=== PATIENT | male | born 1955 | race Caucasian/White ===

== ENCOUNTER 2022-01-02 09:20 | Emergency (ER) | payer MEDICARE, OTHER ==
[~2022-01-02] VITALS: Ht 182.9 cm; Wt 77.1 kg
[~2022-01-02 09:20] MED LIST: ACET500 PO; Bisac-Evac10 MG PR; DOCU100 PO; FOLI1 PO; IMODIUM A-D2 M1 PO; Micro-K10 MEQ; NICO2 PO; ONDA4ODT MM; OXYC5 PO; THIA100 PO; TRAM50
[2022-01-02] MEDS ORDERED: Percocet 5-3251 EACH PO (11:35)
== END 2022-01-02 12:07 | disposition home or self-care (01) ==
LOC: ER 09:20
DX: S80.00XA Contusion of unspecified knee, initial encounter (principal); W22.8XXA Striking against or struck by other objects, initial encounter; Z79.899 Other long term (current) drug therapy; Z87.891 Personal history of nicotine dependence
CPT/HCPCS: 73562-LT; A9270

== ENCOUNTER 2022-01-11 10:00 | Inpatient (IN) | payer MEDICARE, OTHER ==
[~2022-01-11] VITALS: Ht 170.2 cm; Wt 57.9 kg
[~2022-01-11 10:00] MED LIST changes: +B-1100 M1 PO; +BISA10S PR; -Bisac-Evac10 MG PR; +Percocet 5-3251 EACH PO
[2022-01-11 11:05] LABS: BASOPHILS ABSOLUTE AUTO 0.18 K/mm3 (0.00-0.23); BASOPHILS PERCENT AUTO 0 % (0-2); EOSINOPHILS ABSOLUTE AUTO 0.23 K/mm3 (0.00-0.68); EOSINOPHILS PERCENT AUTO 1 % (0-6); Hematocrit 39.2 % (37.0-53.0); Hemoglobin 12.4 g/dL (13.5-17.5); IMMATURE GRAN ABSOLUTE AUTO 0.84 K/mm3 (0.00-0.10); IMMATURE GRAN PERCENT AUTO 2 % (0-1); LYMPHOCYTES ABSOLUTE AUTO 1.13 K/mm3 (0.84-5.20); LYMPHOCYTES PERCENT AUTO 2 % (21-46); MONOCYTES ABSOLUTE AUTO 2.06 K/mm3 (0.16-1.47); MONOCYTES PERCENT AUTO 4 % (4-13); Mean Corpuscular HGB Conc 31.6 g/dL (31.5-36.5); Mean Corpuscular Volume 82 fL (80-100); NEUTROPHILS ABSOLUTE AUTO 43.89 K/mm3 (1.96-9.15); NEUTROPHILS PERCENT AUTO 91 % (41-73); Platelet Count 383 K/mm3 (150-400); RDW Coefficient Variation 15.6 % (11.7-14.2); RDW Standard Deviation 46.3 fL (35.1-46.3); Red Blood Cell Count 4.77 M/mm3 (4.30-5.90); White Blood Cell Count 48.33 K/mm3 (4.00-11.30)
[2022-01-11 11:27] LABS: Albumin, Blood 2.5 g/dL (3.4-5.0); Albumin/Globulin Ratio 0.5 (0.8-1.8); Bilirubin, Total 0.8 mg/dL (0.1-1.0); Bun/Creatinine Ratio 52.1 (12.0-20.0); Calcium, Blood 14.3 mg/dL (8.5-10.1); Creatinine, Blood 0.71 mg/dL (0.60-1.20); Globulin, Blood 5.1 g/dL (2.2-4.0); Potassium, Blood 4.3 mmol/L (3.5-5.5); Total Protein, Blood 7.6 g/dL (6.4-8.2)
[2022-01-11 12:29] LABS: Source, Urine Clean Catch
[2022-01-11 12:36] LABS: Appearance, Urine Cloudy (Clear); Bilirubin, Urine Neg (Neg); Blood, Urine 5+ (Neg); Color, Urine Yellow (P-Yellow); Glucose Qualitative, Urine Neg (Neg); Ketones, Urine 1+ (Neg); Leukocyte Esterase, Urine 3+ (Neg); Nitrite, Urine Neg (Neg); Protein, Urine 3+ (Neg); Specific Gravity, Urine 1.025 (1.003-1.022); Urobilinogen, Urine NORM (Normal)
[2022-01-11 12:58] LABS: Red Blood Cells, Urine TNTC /hpf (0-2); White Blood Cells, Urine TNTC /hpf (0-5)
[2022-01-11 12:59] LABS: Bacteria Many /hpf; Renal Epithelial Rare /hpf (0-Rare); Squamous Epithelial Cells Mod /hpf (Few)
[2022-01-11 13:10] LABS: Influenza A, PCR NEGATIVE (NEGATIVE); Influenza B, PCR NEGATIVE (NEGATIVE); Resp Syncytial Virus, PCR NEGATIVE (NEGATIVE); SARS-Cov-2 (COVID-19) PCR, MMC NEGATIVE (NEGATIVE)
[2022-01-11 14:49] LABS: International Normalized Ratio 1.45; Prothrombin Time Results 14.9 Sec (9.7-11.5)
[2022-01-11 14:52] LABS: Anti-Xa UFH, PHA Monitoring <0.10 IU/mL
[2022-01-11 15:24] LABS: Thyroid Stimulating Hormone 0.934 uIU/mL (0.360-4.800)
[2022-01-11 15:25] LABS: Bun/Creatinine Ratio 54.5 (12.0-20.0); Calcium, Blood 14.1 mg/dL (8.5-10.1); Creatinine, Blood 0.68 mg/dL (0.60-1.20); Potassium, Blood 4.3 mmol/L (3.5-5.5)
[2022-01-11 15:26] LABS: U Amphetamine Screen Not Detected; U Barbituate Screen Not Detected; U Benzodiazapine Screen Not Detected; U Buprenorphine Screen Not Detected; U Cannabinoids Screen Not Detected; U Cocaine Screen Not Detected; U Methadone Screen Not Detected; U Methamphetamine Screen Not Detected; U Opiates Screen Not Detected; U Oxycodone Screen Not Detected; U Phencyclidine Screen Not Detected; U Propoxyphene Screen Not Detected
--- NOTE | 2022-01-11 18:56 | NUR ---
PCU ADMISSION / SHIFT SUMMARY: REPORT RECEIVED FROM GERMAINE Potter RN IN ED. PT ARRIVED TO PCU-08 AT 1610. ON ARRIVAL, THE PT IS CONFUSED. HE ATTEMPTS TO ANSWER QUESTIONS BUT DOES NOT MAKE SENSE. LS DIM T/O, PT ON RA. MONITOR SHOWS ST W/ HR 110-120s, BP STABLE. RLE SWOLLEN R/T DVT. NPO PER NURSING JUDGEMENT. LEE PATENT/ DRAINING YELLOW URINE. SKIN CONDITION OVERALL POOR, Q2H REPOSITIONING. PT HAS NUMEROUS AREAS OF WOUNDS. SEE PHOTO DOCUMENTATION IN CHART. WILL CONTINUE TO MONITOR & REPORT OFF TO ONCOMING RN.
[2022-01-11 23:11] LABS: Albumin, Blood 2.1 g/dL (3.4-5.0); Albumin/Globulin Ratio 0.5 (0.8-1.8); Bilirubin, Total 0.4 mg/dL (0.1-1.0); Bun/Creatinine Ratio 51.4 (12.0-20.0); Creatinine, Blood 0.64 mg/dL (0.60-1.20); Globulin, Blood 4.2 g/dL (2.2-4.0); Potassium, Blood 3.8 mmol/L (3.5-5.5); Total Protein, Blood 6.3 g/dL (6.4-8.2)
[2022-01-11 23:12] LABS: Calcium, Blood 11.7 mg/dL (8.5-10.1)
--- NOTE | 2022-01-12 02:41 | NUR ---
UPDATE SPOKE WITH RESIDENT KELLEY REGARDING PATIENT'S CMP RESULT AND IF ADDITIONAL DOSE OF CALCITONIN IS REQUIRED PER ORDERS FROM DR. AMOR FROM DAY SHIFT. RESIDENT TO PLACE ORDERS.
[2022-01-12 04:46] LABS: BASOPHILS PERCENT AUTO 0 % (0-2); EOSINOPHILS ABSOLUTE AUTO 0.27 K/mm3 (0.00-0.68); EOSINOPHILS PERCENT AUTO 1 % (0-6); Hematocrit 31.8 % (37.0-53.0); Hemoglobin 10.1 g/dL (13.5-17.5); IMMATURE GRAN ABSOLUTE AUTO 0.43 K/mm3 (0.00-0.10); IMMATURE GRAN PERCENT AUTO 1 % (0-1); LYMPHOCYTES ABSOLUTE AUTO 1.18 K/mm3 (0.84-5.20); LYMPHOCYTES PERCENT AUTO 3 % (21-46); MONOCYTES ABSOLUTE AUTO 1.71 K/mm3 (0.16-1.47); MONOCYTES PERCENT AUTO 4 % (4-13); Mean Corpuscular HGB 26.1 pg (26.0-34.0); Mean Corpuscular HGB Conc 31.8 g/dL (31.5-36.5); Mean Corpuscular Volume 82 fL (80-100); NEUTROPHILS ABSOLUTE AUTO 35.92 K/mm3 (1.96-9.15); NEUTROPHILS PERCENT AUTO 91 % (41-73); Platelet Count 348 K/mm3 (150-400); RDW Coefficient Variation 15.7 % (11.7-14.2); RDW Standard Deviation 45.9 fL (35.1-46.3); Red Blood Cell Count 3.87 M/mm3 (4.30-5.90); White Blood Cell Count 39.61 K/mm3 (4.00-11.30)
[2022-01-12 05:17] LABS: Albumin, Blood 2.1 g/dL (3.4-5.0); Albumin/Globulin Ratio 0.5 (0.8-1.8); Bilirubin, Total 0.6 mg/dL (0.1-1.0); Bun/Creatinine Ratio 44.4 (12.0-20.0); Creatinine, Blood 0.63 mg/dL (0.60-1.20); Globulin, Blood 4.2 g/dL (2.2-4.0); Magnesium, Blood 2.2 mg/dL (1.6-2.4); Phosphorus, Blood 1.8 mg/dL (2.5-4.9); Potassium, Blood 3.4 mmol/L (3.5-5.5); Total Protein, Blood 6.3 g/dL (6.4-8.2)
--- NOTE | 2022-01-12 06:34 | NUR ---
SHIFT SUMMARY PATIENT ALERT TO SELF ONLY, RESPONDS TO VERBAL STIMULI, ATTEMPTS TO CONVERSE BUT TALKS NONSENSICAL. TACHYCARDIC DURING THE NIGHT, ALL OTHER VSS, PATIENT REMAINS ON RA WITH O2 SAT >90%. NASAL GROWTH CONTINUES TO OOZE BLOOD DURING THE NIGHT. SUCTION ORAL CARE PERFORMED. REPOSITIONED Q2. TIBIAL/PEDAL PULSE IN RIGHT LOWER EXTREMITY REMAINS PALPABLE EVEN WITH EDEMA. LEE IN PLACE DRAINING DARK YELLOW URINE TO GRAVITY. NO OTHER SIGNIFICANT CHANGES THIS SHIFT, WILL REPORT TO DAY SHIFT RN.
--- NOTE | 2022-01-12 08:59 | NUR ---
NURSING PCU DAYSHIFT: Assumed care of pt at approx 0700. Awake, pleasant, no able to answer any orientation questions including name, able to answer basic yes/no questions, mumbles. Deconditioned, fragile, weak, requires assistance w/all needs. Skin is fragile, scaling t/o, scattered bruising, excoritation to naga area, wounds to buttocks, large L nasal mass w/scabbing and bloody ooze. Tele in place, SR/ST, SBP 118, 1-2+ BLE edema (R>L), pulses palp though R pedal pulse not as strong as L. L/S cta, respirations shallow, O2 sat upper 90's on RA, no noted cough. Abd firm, nontender, BT+, FC w/stat lock in place and draining yellow/cloudy urine. PIV x3, hep gtt infusing per pharmacy dosing, IVF at 200 mls/hr per pharmacy dosing. No s/s of acute distress this a.m. Seen by PMD, new d/o received. Plan for ENT consult, message left by consulting physician. Pt able to swallow PO meds w/applesauce w/o difficulty after RN bedside eval completed. Call light in reach though frequent rounding required d/t confusion, bed alarm set for safety purposes, cont to monitor for any changes.
--- NOTE | 2022-01-12 13:37 | NUR ---
Spoke with Primary RN Khalida, cd manufacturing supervisor Ella, and discussed case. Pt confused and no NOK listed. Pt resting in bed receiving bed bath by staff. Pt is pleasantly confused. Significant mass noted on nose. Called and spoke with Pt's roomate Radha. Radha reports at baseline Pt is independent of his ADLs but uses cane to assist with ambulation. Pt has not been well kept for some time. She reports knowing Pt since the . She states Pt has a brother but Pt has not been in contact with brother since she has known Pt. She reports no name or contact information for brother. Radha reports willingness to make decisions for Pt if needed. Radha reports Pt did [facility] Called and spoke with Pt's PCP staff. Pt does not have NOK listed. No AD/POLST on file. [facility] to [facility]. A reasonable effort has been made to determine next of Kin or healthcare account representative. If needed, Pt's roomate Radha is appropriate to make decisions and she is agreeable. Palliative Care will remain available.
[2022-01-12 16:36] LABS: Albumin, Blood 1.8 g/dL (3.4-5.0); Albumin/Globulin Ratio 0.5 (0.8-1.8); Bilirubin, Total 0.2 mg/dL (0.1-1.0); Bun/Creatinine Ratio 40.5 (12.0-20.0); Calcium, Blood 9.9 mg/dL (8.5-10.1); Creatinine, Blood 0.49 mg/dL (0.60-1.20); Globulin, Blood 3.6 g/dL (2.2-4.0); Potassium, Blood 3.2 mmol/L (3.5-5.5); Total Protein, Blood 5.4 g/dL (6.4-8.2)
--- NOTE | 2022-01-12 17:01 | NUR ---
NURSING PCU DAYSHIFT SUMMARY: No significant changes noted t/o the shift. Called ENT office and received an update that pt will be followed as an outpatient, will update PMD. APS at bedside for evaluation this afternoon. Pt remains pleasantly confused and cooperative w/care. Respiratory and cardiac status remain stable and unchanged. IVF and hep gtt cont to infuse as per d/o. Changed pt diet to FL w/thickened liquids for aspiration prevention until pt can clearly follow commands. No s/s of acute distress at this time. Frequent rounding continued t/o shift, bedbath/linen change completed. No current needs identified, cont to monitor until rpt is given to NOC RN.
--- NOTE | 2022-01-13 05:57 | NUR ---
Shift summary: No acute events overnight. Pt rested and stated this morning that he "feels much better." He is alert to self and knows that he is in [place] but still plesantly confused. He does follow commands but still weak and on bedrest. Dermatology office called by feeder operator automatic, however, unknown if that was the correct number. Pt remains on RA and no complaints of SOB. Heparin drip and IV fluids infusing and cee still in place draining yellow urine.
[2022-01-13 06:16] LABS: Hematocrit 24.6 % (37.0-53.0); Hemoglobin 7.8 g/dL (13.5-17.5); Mean Corpuscular HGB 26.7 pg (26.0-34.0); Mean Corpuscular HGB Conc 31.7 g/dL (31.5-36.5); Mean Corpuscular Volume 84 fL (80-100); Mean Platelet Volume 9.8 fL (9.1-12.4); Platelet Count 287 K/mm3 (150-400); RDW Standard Deviation 48.3 fL (35.1-46.3); Red Blood Cell Count 2.92 M/mm3 (4.30-5.90); White Blood Cell Count 29.01 K/mm3 (4.00-11.30)
[2022-01-13 06:34] LABS: Albumin, Blood 1.6 g/dL (3.4-5.0); Albumin/Globulin Ratio 0.5 (0.8-1.8); Bilirubin, Total 0.5 mg/dL (0.1-1.0); Bun/Creatinine Ratio 33.9 (12.0-20.0); Calcium, Blood 9.8 mg/dL (8.5-10.1); Creatinine, Blood 0.5 mg/dL (0.60-1.20); Globulin, Blood 3.5 g/dL (2.2-4.0); Potassium, Blood 3.1 mmol/L (3.5-5.5); Total Protein, Blood 5.1 g/dL (6.4-8.2)
[2022-01-13 06:39] LABS: BAND PERCENT MAN 4 % (0-8); BASOPHILS PERCENT MAN 0 % (0-2); EOSINOPHILS ABSOLUTE MAN 0.58 K/mm3 (0.00-0.68); EOSINOPHILS PERCENT MAN 2 % (0-6); LYMPHOCYTES ABSOLUTE MAN 0.29 K/mm3 (0.84-5.20); LYMPHOCYTES PERCENT MAN 1 % (21-46); MONOCYTES ABSOLUTE MAN 0.58 K/mm3 (0.16-1.47); MONOCYTES PERCENT MAN 2 % (4-13); NEUTROPHILS ABSOLUTE MAN 27.55 K/mm3 (1.96-9.15); SEG NEUTROPHILS PERCENT MAN 91 % (41-73); TOTAL CELLS COUNTED 100
--- NOTE | 2022-01-13 10:08 | NUR ---
0800 ASSUMED CARE OF PATIENT AT ROUNDING AND HAND OFF PATIENT WAS AWAKE AND ALERT TO SELF. HE STATED HE KNEW HE WAS IN THE HOSPITAL BUT NOT SURE REASON WHY. HE HAS 3 PIV'S ONE WITH HEPARIN DRIP AT 24 UNIT/HR, ONE WITH TKO FOR THIAMINE IVP AND ONE SL. PATIENT MOVES UPPER EXTREMETIES SLIGHTLY FOR ME AND NOT TOO ACTIVE WITH LE BILAT IN BED. HE DOES HAVE A DVT IN R LE, CHECKED DOPPLER PULSES AND THEY WERE BOTH GOOD POST TIBIAL AND DORSAL PEDAL. HE HAS OK CAP REFILL AT 3 BILAT. HE HAS DRY FLAKY SKIN ALL OVER. HE HAS WOUND TO HIS LEFT HIP AND BUTTOCK DRESSING ON. HE HAS LEE IN PLACE WITH YELLOW URINE OUT. HE HAS CLEAR LUNGS SOUNDS T/O AND + BT X 4 QUAD. HE HAS TEARS FROM EYES AND SLIGHT DRY BLOODY DRAINAGE FROM MASS ON LEFT NARE OF FACE WHICH PROTRUDES EXTENSIVELY. HE DOES NOT COMPLAIN OF PAIN AT THIS TIME. HIS POTASSIUM IS LOW THIS AM AND DR ORDERED REPLACEMENT OF PO MEDICATION. HE IS ON NECT. THICK LIQUIDS AND DOES OK EATTING IF FED. WILL CONTINUE CARE DIRECTED.
--- NOTE | 2022-01-13 11:15 | NUR ---
ASSUMED CARE OF PT FROM TANESHA VAUGHN.
--- NOTE | 2022-01-13 13:34 | NUR ---
Pt resting in bed with his eyes closed. Pt appears comfortable with no S/S of distress at this time. Spoke with PT Anival and discussed case. Pt confused and appears to lack some motivation. Meaningful rehabilitation unclear at this point. Palliative Care will remain available.
[2022-01-13 14:12] LABS: Albumin, Blood 1.8 g/dL (3.4-5.0); Albumin/Globulin Ratio 0.5 (0.8-1.8); Bilirubin, Total 0.2 mg/dL (0.1-1.0); Calcium, Blood 10.3 mg/dL (8.5-10.1); Creatinine, Blood 0.46 mg/dL (0.60-1.20); Globulin, Blood 3.3 g/dL (2.2-4.0); Potassium, Blood 3.2 mmol/L (3.5-5.5); Total Protein, Blood 5.1 g/dL (6.4-8.2)
--- NOTE | 2022-01-13 18:11 | NUR ---
NO CHANGE IN PT CONDITION OR ACUTE EVENTS T/O THE SHIFT. WOUND CARE PROVIDED, SEE WOUND PHOTOS IN CHART. PT APPEARS TO BE LESS CONFUSED TODAY, A&0X2. AFEBRILE. SEE DOCUMENTED VS. PALLIATIVE CARE AND WOUND CARE CONSULTED TODAY. BED ALARM ON FOR SAFETY, CALL LIGHT IN REACH, WILL CONTINUE TO MONITOR AND GIVE REPORT TO NOC SHIFT RN.
--- NOTE | 2022-01-14 05:45 | NUR ---
Shift summary: No acute events overnight. Pt was awake for the whole shift, only alert to self and still confused. He is able to follow commands but still extremely weak and in pain when being turned. Remains on RA with O2 sats in mid-90s. Pt has a productive wet cough, tried to do oral care multiple times throughout the night and instruct pt to cough up some of those secretions but was only successful a few times. Lung sounds still clear and no c/o SOB. ST in low 100s. BP stable. Afebrile. IV fluids infusing. Heparin drip rate increased to 26 units/kg/hr this AM. King still in place draining yellow urine with sediment.
[2022-01-14 07:56] LABS: BASOPHILS ABSOLUTE AUTO 0.05 K/mm3 (0.00-0.23); BASOPHILS PERCENT AUTO 0 % (0-2); EOSINOPHILS ABSOLUTE AUTO 0.73 K/mm3 (0.00-0.68); EOSINOPHILS PERCENT AUTO 2 % (0-6); Hematocrit 23.9 % (37.0-53.0); Hemoglobin 7.4 g/dL (13.5-17.5); IMMATURE GRAN ABSOLUTE AUTO 0.33 K/mm3 (0.00-0.10); IMMATURE GRAN PERCENT AUTO 1 % (0-1); LYMPHOCYTES ABSOLUTE AUTO 1.13 K/mm3 (0.84-5.20); LYMPHOCYTES PERCENT AUTO 4 % (21-46); MONOCYTES ABSOLUTE AUTO 1.66 K/mm3 (0.16-1.47); MONOCYTES PERCENT AUTO 5 % (4-13); Mean Corpuscular HGB 26.5 pg (26.0-34.0); Mean Corpuscular Volume 86 fL (80-100); Mean Platelet Volume 11.3 fL (9.1-12.4); NEUTROPHILS ABSOLUTE AUTO 28.69 K/mm3 (1.96-9.15); NEUTROPHILS PERCENT AUTO 88 % (41-73); Platelet Count 272 K/mm3 (150-400); RDW Coefficient Variation 16.3 % (11.7-14.2); RDW Standard Deviation 49.6 fL (35.1-46.3); Red Blood Cell Count 2.79 M/mm3 (4.30-5.90); White Blood Cell Count 32.59 K/mm3 (4.00-11.30)
[2022-01-14 08:03] LABS: Albumin, Blood 1.7 g/dL (3.4-5.0); Albumin/Globulin Ratio 0.5 (0.8-1.8); Bilirubin, Total 0.4 mg/dL (0.1-1.0); Bun/Creatinine Ratio 38.3 (12.0-20.0); Calcium, Blood 10.5 mg/dL (8.5-10.1); Creatinine, Blood 0.5 mg/dL (0.60-1.20); Globulin, Blood 3.4 g/dL (2.2-4.0); Potassium, Blood 3.6 mmol/L (3.5-5.5); Total Protein, Blood 5.1 g/dL (6.4-8.2)
[2022-01-14 11:37] LABS: Hematocrit 23.2 % (37.0-53.0); Hemoglobin 7.2 g/dL (13.5-17.5); Mean Platelet Volume 9.8 fL (9.1-12.4); Platelet Count 243 K/mm3 (150-400)
[2022-01-14 11:38] LABS: Hemoglobin 7.2 g/dL (13.5-17.5); Mean Corpuscular HGB 26.7 pg (26.0-34.0); Mean Corpuscular HGB Conc 31.3 g/dL (31.5-36.5); Mean Corpuscular Volume 85 fL (80-100); Mean Platelet Volume 9.6 fL (9.1-12.4); Platelet Count 242 K/mm3 (150-400); RDW Coefficient Variation 16.3 % (11.7-14.2); RDW Standard Deviation 49.1 fL (35.1-46.3); White Blood Cell Count 31.66 K/mm3 (4.00-11.30)
--- NOTE | 2022-01-14 11:59 | NUR ---
UPDATE CONTACTED ABOUT RECENT LAB VALUES FROM 1123 LAB DRAW
[2022-01-14 12:04] LABS: BAND PERCENT MAN 2 % (0-8); BASOPHILS PERCENT MAN 0 % (0-2); EOSINOPHILS PERCENT MAN 0 % (0-6); LYMPHOCYTES ABSOLUTE MAN 1.58 K/mm3 (0.84-5.20); LYMPHOCYTES PERCENT MAN 5 % (21-46); MONOCYTES ABSOLUTE MAN 0.94 K/mm3 (0.16-1.47); MONOCYTES PERCENT MAN 3 % (4-13); NEUTROPHILS ABSOLUTE MAN 29.12 K/mm3 (1.96-9.15); SEG NEUTROPHILS PERCENT MAN 90 % (41-73); TOTAL CELLS COUNTED 100
[2022-01-14 14:38] LABS: Albumin, Blood 1.8 g/dL (3.4-5.0); Albumin/Globulin Ratio 0.5 (0.8-1.8); Bilirubin, Total 0.3 mg/dL (0.1-1.0); Bun/Creatinine Ratio 36.3 (12.0-20.0); Calcium, Blood 9.8 mg/dL (8.5-10.1); Creatinine, Blood 0.44 mg/dL (0.60-1.20); Globulin, Blood 3.8 g/dL (2.2-4.0); Potassium, Blood 3.2 mmol/L (3.5-5.5); Total Protein, Blood 5.6 g/dL (6.4-8.2)
--- NOTE | 2022-01-14 17:04 | NUR ---
REPORT GIVEN TO MEDICAL RN AT 1649. PT TRANSFERED AT 1700 VIA HOSPITAL BED AND ON RA. PT CHART TRANSFERED WITH PT. PT MEDS IN GREEN MEDICATION BAG AND TRANSFERED WITH PT. IV MEDS RUNNING PER EMAR DURING TRANSFER.
--- NOTE | 2022-01-14 18:18 | NUR ---
SHIFT SUMMARY/TRANSFER PATIENT TRANSFERRED FROM PCU AT 1700. PATIENT SETTLED INTO ROOM. PATIENT ORIENTED TO CALL LIGHT AND TV CONTROL. PATIENT IS A&O TO SELF. PATIENT IS ON BEDREST. 2 RN SKIN ASSESSMENT COMPLETED WITH RIGOBERTO VAUGHN. PATIENT HAS MULTIPLE WOUNDS, DRESSINGS C/D/I. PATIENT HAS HEPARIN RUNNING AT 26U/KG/HR. LEE IS PATENT AND DRAINING TO GRAVITY. PATIENT IS ON A FULL LIQUID DIET AND NEEDS ASSISTANCE. PATIENT IS VERY PLEASANT AND COOPERATIVE WITH CARE.
--- NOTE | 2022-01-15 04:23 | NUR ---
FINANCE EXECUTIVE SUMMARY PT SLEPT WELL T/O THE NIGHT. PT IS ORIENTED T/SELF; PT IS CONFUSED ABOUT SURROUNDINGS AND STAFF. WHEN PROVIDING DIRECT CARE OR INSTRUCTIONS PT STRUGGLES TO FOLLOW DIRECTIONS. HE WILL VERBALLY INDICATE HE UNDERSTANDS BUT HIS ACTIONS WON'T ALWAYS FOLLOW. BOWEL MOVEMENT; CHANGED MEPILEX TO COCCYX WOUNDS. HAND NEW BAG OF HEPARIN; RUNNING AT 26U/KG/HR. PT CONT ON A FULL LIQUID DIET; NOTED COUGHING MULTPLE TIMES AFTER TAKING SIPS OF WATER. PT HAS LEE; PATENT/DRAINING TO GRAVITY; URINE CLOUDY W/SEDIMENT. PT UNABLE TO USE CALL LIGHT OR COMMUNICATE NEEDS. BED LOCKED/LOW; ALARM SET. FREQUENT ROUNDING; WILL CONT TO MONITOR.
[2022-01-15 06:48] LABS: BASOPHILS ABSOLUTE AUTO 0.07 K/mm3 (0.00-0.23); BASOPHILS PERCENT AUTO 0 % (0-2); EOSINOPHILS ABSOLUTE AUTO 0.67 K/mm3 (0.00-0.68); EOSINOPHILS PERCENT AUTO 2 % (0-6); Hematocrit 20.2 % (37.0-53.0); Hemoglobin 6.3 g/dL (13.5-17.5); IMMATURE GRAN ABSOLUTE AUTO 0.54 K/mm3 (0.00-0.10); IMMATURE GRAN PERCENT AUTO 1 % (0-1); LYMPHOCYTES ABSOLUTE AUTO 1.35 K/mm3 (0.84-5.20); LYMPHOCYTES PERCENT AUTO 4 % (21-46); MONOCYTES ABSOLUTE AUTO 1.81 K/mm3 (0.16-1.47); MONOCYTES PERCENT AUTO 5 % (4-13); Mean Corpuscular HGB 26.3 pg (26.0-34.0); Mean Corpuscular HGB Conc 31.2 g/dL (31.5-36.5); Mean Corpuscular Volume 84 fL (80-100); Mean Platelet Volume 10.6 fL (9.1-12.4); NEUTROPHILS ABSOLUTE AUTO 33.52 K/mm3 (1.96-9.15); NEUTROPHILS PERCENT AUTO 88 % (41-73); Platelet Count 252 K/mm3 (150-400); RDW Coefficient Variation 16.5 % (11.7-14.2); RDW Standard Deviation 49.3 fL (35.1-46.3); White Blood Cell Count 37.96 K/mm3 (4.00-11.30)
[2022-01-15 07:22] LABS: Albumin, Blood 1.6 g/dL (3.4-5.0); Albumin/Globulin Ratio 0.5 (0.8-1.8); Bilirubin, Total 0.5 mg/dL (0.1-1.0); Bun/Creatinine Ratio 39.8 (12.0-20.0); Calcium, Blood 9.1 mg/dL (8.5-10.1); Creatinine, Blood 0.5 mg/dL (0.60-1.20); Globulin, Blood 3.5 g/dL (2.2-4.0); Potassium, Blood 3.5 mmol/L (3.5-5.5); Total Protein, Blood 5.1 g/dL (6.4-8.2)
[2022-01-15 16:27] LABS: PCO2 Arterial 32.9 mmHg (35-45); PO2 Arterial 491 mmHg (80-100)
[2022-01-15 16:43] LABS: International Normalized Ratio 2.54; Prothrombin Time Results 25.1 Sec (9.7-11.5)
[2022-01-15 16:46] LABS: Magnesium, Blood 1.6 mg/dL (1.6-2.4)
[2022-01-15 16:47] LABS: Albumin, Blood 1.1 g/dL (3.4-5.0); Albumin/Globulin Ratio 0.5 (0.8-1.8); Bilirubin, Total 0.3 mg/dL (0.1-1.0); Bun/Creatinine Ratio 33.9 (12.0-20.0); Calcium, Blood 8.5 mg/dL (8.5-10.1); Creatinine, Blood 0.83 mg/dL (0.60-1.20); Globulin, Blood 2.3 g/dL (2.2-4.0); Phosphorus, Blood 3.4 mg/dL (2.5-4.9); Potassium, Blood 4.8 mmol/L (3.5-5.5); Total Protein, Blood 3.4 g/dL (6.4-8.2)
--- NOTE | 2022-01-15 16:55 | NUR ---
ASSUME CARE: I assumed care of this patient at 1615 after second cardiac arrest. This RN assisted Dr Hilario in inserting right quad lumen femoral centeral line. Levo was running at 10 mcg/min upon my arrival. Amiodarione was started at 1mg/min and epinephrine started at 10 mcg/min per verbal order from Dr Hilario. Family at bedside at this time with palliative care.
--- NOTE | 2022-01-15 17:25 | NUR ---
TOD: Pt without centeral pulses, respirations, or heart beat on auscultation. Time of called at 1725
--- NOTE | 2022-01-15 17:51 | NUR ---
pt called to rapid response cpr initiated. pt coded and sent to icu. Pt continued to decline with profound shock. His friend was notified and came to hospital. Pt coded again and pulse returned but remained in profound shock with low sats. Ethic bedside discussion with phsycians and code team that we would not due cpr again due to his frailty and history. KPS score 10%. Ethic consult placed with tez espinoza and two phsycian agreed his friends saw him and were accepting of his demise. pt placed on comfort and passed quickly. prayer given and comfort. Will follow up with chaplian to debrief staff and his friends.
== END 2022-01-15 17:25 | DRG 640 ==
LOC: ER 10:00 → PCU 14:42 → MEDS 01-14 17:04 → ICUW 01-15 15:44
PROVIDERS: Emergency Medicine; Family Medicine; Internal Medicine Critical Care Medicine; ADMIT Internal Medicine
PROC: 3E03329 Introduction of Other Anti-infective into Peripheral Vein, Percutaneous Approach (ICD-10-PCS; 2022-01-11)
PROC: 5A12012 Performance of Cardiac Output, Single, Manual (ICD-10-PCS; 2022-01-11)
PROC: 3E033XZ Introduction of Vasopressor into Peripheral Vein, Percutaneous Approach (ICD-10-PCS; principal; 2022-01-15)
PROC: 02HV33Z Insertion of Infusion Device into Superior Vena Cava, Percutaneous Approach (ICD-10-PCS; 2022-01-15)
PROC: 0BH17EZ Insertion of Endotracheal Airway into Trachea, Via Natural or Artificial Opening (ICD-10-PCS; 2022-01-15)
PROC: 5A1935Z Respiratory Ventilation, Less than 24 Consecutive Hours (ICD-10-PCS; 2022-01-15)
DX: E83.52 Hypercalcemia (principal); G92.8 Other toxic encephalopathy; C41.4 Malignant neoplasm of pelvic bones, sacrum and coccyx; N39.0 Urinary tract infection, site not specified; E87.20 Acidosis, unspecified; I82.411 Acute embolism and thrombosis of right femoral vein; R57.9 Shock, unspecified; I46.9 Cardiac arrest, cause unspecified; Z66 Do not resuscitate; F10.20 Alcohol dependence, uncomplicated; J34.89 Other specified disorders of nose and nasal sinuses; I49.01 Ventricular fibrillation; M54.50 Low back pain, unspecified; R91.1 Solitary pulmonary nodule; D50.9 Iron deficiency anemia, unspecified; C67.9 Malignant neoplasm of bladder, unspecified; C44.321 Squamous cell carcinoma of skin of nose; Z96.642 Presence of left artificial hip joint; Z20.822 Contact with and (suspected) exposure to COVID-19; Z79.891 Long term (current) use of opiate analgesic; Z79.899 Other long term (current) drug therapy; Z87.891 Personal history of nicotine dependence; Z98.890 Other specified postprocedural states; R79.81 Abnormal blood-gas level
CPT/HCPCS: 0241U; 31500; 36415; 36556; 36600; 51702; 70450; 70486; 70551; 71045; 71260; 74177; 80048; 80053; 81001; 82306; 82330; 82607; 82652; 82728; 82746; 82803; 83540; 83550; 83605; 83690; 83735; 83970; 84100; 84443; 84484; 85007; 85014; 85018; 85025; 85027; 85049; 85520; 85610; 85651; 85730; 86141; 86850; 86900; 86901; 86923; 87040; 87086; 92610; 93005; 93010; 93971; 94002; 96361-59; 96365-59; 96375-59; 97110; 97162; 97166; 97530; 99285-25; A9270; C1751; J0282; J0630; J0696; J1644; J2543; J3010; J3411; J3489; J7030; J7060; Q9967